=== PATIENT | male | born 1995 | race African-American/Black ===

== ENCOUNTER 2016-11-22 14:08 | Emergency (ER) | payer SELFPAY ==
[~2016-11-22] VITALS: Ht 177.8 cm; Wt 88.0 kg
[~2016-11-22 14:08] MED LIST: Z.0.NO CURRENT MEDS
[2016-11-22 14:14] VITALS: BP 125/75; PULSE 104; RESP 16; TEMP 100.3; O2SAT 99
[2016-11-22] MEDS ORDERED: PENI500T PO (14:54)
--- NOTE | 2016-11-22 14:54 | PD ---
HPI Chief Complaint: ENT Complaint Time Seen by Provider: 14:38 Travel History International Travel<30 days: No Contact w/Intl Traveler<30days: No Traveled to known affect area: No History of Present Illness HPI 21-year-old male with chief complaint of sore throat and fever 2 days. Patient reports pain with swallowing but is able to eat and drink normally. Symptoms unrelieved with [id number] Tylenol. Similar symptoms in the past with strep throat. Symptom severity is mild. PFSH Past Medical History ADD: Yes ADHD: Yes (adhd) Weight (Kg): 3 Cancer: No Cardiovascular Problems: No Developmental Delay: No Diabetes: No Diminished Hearing: No Headaches: Yes (Rarely) Psychiatric: Yes (adhd) Immunizations Current: Yes Migraines: No Seizures: No Thyroid Disease: No Ulcer: No Tetanus Vaccination: < 5 Years Influenza Vaccination: No Past Surgical History Appendectomy: No Section: No Cholecystectomy: No Other Surgery: Yes (addnoids at age 13.) Social History Alcohol Use: No Tobacco Use: No Substance Use: No Allergies-Medications (Allergen,Severity, Reaction): Coded Allergies: No Known Allergies (Verified , 11/22/16) Reported Meds & Prescriptions Reported Meds & Active Scripts Active No Active Prescriptions or Reported Medications Review of Systems Except as stated in HPI: all other systems reviewed are Neg General / Constitutional: Positive: Fever HENT: Positive: Sore Throat Physical Exam Narrative GENERAL: Well-nourished, well-developed patient. SKIN: Focused skin assessment warm/dry. HEAD: Normocephalic. EYES: No scleral icterus. No injection or drainage. THROAT: Posterior pharyngeal erythema. Bilateral tonsillar swelling with exudate. Uvula is midline. Airway is patent. NECK: Supple, trachea midline. No JVD or + mild submandibular lymphadenopathy. CARDIOVASCULAR: Regular rate and rhythm without murmurs, gallops, or rubs. RESPIRATORY: Breath sounds equal bilaterally. No accessory muscle use. GASTROINTESTINAL: Abdomen soft, non-tender, nondistended. Data Data Last Documented VS Vital Signs Date Time Temp Pulse Resp B/P (MAP) Pulse Ox O2 Delivery O2 Flow Rate FiO2 11/22/16 14:14 100.3 104 16 125/75 (92) 99 MDM Medical Decision Making Medical Screen Exam Complete: Yes Emergency Medical Condition: Yes Differential Diagnosis Strep pharyngitis, viral pharyngitis, mononucleosis Narrative Course 21-year-old male with chief complaint of sore throat and fever 2 days. On exam patient has a lateral tonsillar swelling with exudate consistent with tonsillitis. Patient will be treated for strep pharyngitis. Diagnosis Primary Impression: Tonsillitis Referrals: Primary Care Physician Additional Instructions: Take the antibiotics as prescription. Take [id number] Motrin 600 800 mg every 6-8 hours as needed for pain. Follow-up with her primary doctor. Return to emergency department if he developed new or worsening symptoms Scripts Penicillin V Potassium (Penicillin V Potassium) 500 Mg Tab 500 MG PO BID for Infection for 10 Days, #20 TAB 0 Refills Prov: Aziza Blanton 11/22/16 Disposition: 01 DISCHARGE HOME Condition: Stable Aziza Blanton Nov 22, 2016 14:54
== END 2016-11-22 15:18 | disposition home or self-care (01) ==
LOC: PHEFT 14:08
DX: J03.90 Acute tonsillitis, unspecified (principal)
CPT/HCPCS: 99283